=== PATIENT | female | born 1980 | race Caucasian/White ===

== ENCOUNTER 2016-09-26 07:50 | Emergency (ER) | payer SELFPAY ==
[~2016-09-26] VITALS: Ht 162.6 cm; Wt 54.4 kg
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
[2016-09-26] MEDS ORDERED: LORAZEPAM INJ 2 MG/ML VIAL ONE ×2 (08:08→08:18)
[2016-09-26 08:23] LABS: BASOPHILS % (AUTO) 0.4 % (0.0-2.0); EOSINOPHILS # (AUTO) 0.1 /CMM (0.0-0.7); EOSINOPHILS % (AUTO) 0.8 % (0.0-6.0); HEMATOCRIT 36 % (33-45); LYMPHOCYTES # (AUTO) 1.8 /CMM (0.8-4.8); LYMPHOCYTES % (AUTO) 24.1 % (20.0-44.0); MEAN CORPUSCULAR HEMOGLOBIN 28 PG (26.0-33.0); MEAN CORPUSCULAR HGB CONC 34 g/dl (31.0-36.0); MEAN CORPUSCULAR VOLUME 83 fL (82-100); MONOCYTES # (AUTO) 0.4 /CMM (0.1-1.30); MONOCYTES % (AUTO) 5.2 % (2.0-12.0); NEUTROPHILS # (AUTO) 5.1 /CMM (1.8-8.9); NEUTROPHILS % (AUTO) 69.5 % (43.0-81.0); PLATELET COUNT (AUTO) 291 /CMM (150-450); RDW COEFFICIENT OF VARIATION 14.7 (11.5-15.0); RED BLOOD CELL COUNT(AUTO) 4.29 MIL/uL (4.0-5.2); WHITE BLOOD COUNT (AUTO) 7.3 K/uL (4.3-11.0)
[2016-09-26] MEDS ORDERED: LORAZEPAM INJ 2 MG/ML VIAL IM ONE (08:30)
[2016-09-26] MEDS ORDERED: IV NS 0.9% 1,000 ML BAG IV ONE (08:30)
[2016-09-26 08:34] LABS: ALCOHOL, BLOOD < 3 mg/dL (0-0); CALCIUM, SERUM 8.5 mg/dL (8.5-10.1); CARBON DIOXIDE 26 mmol/L (21-32); CHLORIDE 105 mmol/L (98-107); CREATININE 0.8 mg/dL (0.6-1.3); GLUCOSE 104 mg/dL (74-106); POTASSIUM 3.3 mmol/L (3.5-5.1); SODIUM SERUM 142 mmol/L (136-145); UREA NITROGEN, BLOOD 27 mg/dL (7-18)
--- NOTE | 2016-09-26 08:35 | NUR ---
NEW IV STARTED LAC, 20 G. BLOOD DRAWN AND SENT TO LAB.
--- NOTE | 2016-09-26 08:45 | NUR ---
URINE OBTAINED VIA STRAIGHT CATH AND SENT TO LAB PER DR. CLAUDIO'S ORDERS.
--- NOTE | 2016-09-26 12:54 | NUR ---
CALLED [employer] MACHINE OPERATOR TRAIN INSPECTOR ETA OF 1HR WAS GIVEN.
--- NOTE | 2016-09-26 14:00 | NUR ---
PATIENT SLEEPING AT THIS TIME, NO COMPLICATIONS NOTED. WILL CONTINUE TO MONITOR.
--- NOTE | 2016-09-26 18:00 | NUR ---
PATIENT COMFORTABLE IN BED, QUIET. NO COMPLICATIONS NOTED, VSS. WILL CONTINUE TO MONITOR.
--- NOTE | 2016-09-26 19:40 | NUR ---
IV removed. Catheter intact and site benign. Pressure and 4x4 applied to site. No bleeding noted.Patient discharged to home in stable condition. Written and verbal after care instructions given. Patient verbalizes understanding of instruction. Patient is ambulatory with steady gait. Patient said her friend is going to pick her up. No further complaints.
[2016-09-26 19:42] VITALS: BP 110/79
== END 2016-09-26 19:42 | disposition home or self-care (01) ==
LOC: ER 07:53
DX: T44.901A Poisoning by unspecified drugs primarily affecting the autonomic nervous system, accidental (unintentional), initial encounter (principal); F15.10 Other stimulant abuse, uncomplicated; Y93.89 Activity, other specified
CPT/HCPCS: 36415; 80048; 80305; 84703; 85025; 93005; 96361; 96374; 99285; A4606; G0480; J2060; J7030 ×2; Z7610

== ENCOUNTER 2017-12-09 14:50 | Emergency (ER) | payer OTHER ==
[~2017-12-09] VITALS: Ht 162.6 cm; Wt 55.3 kg
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
--- NOTE | 2017-12-09 15:00 | NUR ---
PATIENT LISTENING TO INSTRUCTION. RESTRAINTS REMOVED
[2017-12-09] MEDS ORDERED: LORAZEPAM INJ 2 MG/ML VIAL IV ONE (15:30)
[2017-12-09] MEDS ORDERED: LORAZEPAM INJ 2 MG/ML VIAL ONE (15:31)
[2017-12-09 15:40] LABS: BASOPHILS # (AUTO) 0.1 /CMM (0.0-0.2); BASOPHILS % (AUTO) 2.4 % (0.0-2.0); EOSINOPHILS % (AUTO) 0.6 % (0.0-6.0); HEMATOCRIT 39 % (33-45); HEMOGLOBIN 12.9 g/dL (11.5-14.8); LYMPHOCYTES # (AUTO) 2.1 /CMM (0.8-4.8); LYMPHOCYTES % (AUTO) 33.6 % (20.0-44.0); MEAN CORPUSCULAR HGB CONC 34 g/dl (31.0-36.0); MEAN CORPUSCULAR VOLUME 86 fL (82-100); MONOCYTES # (AUTO) 0.4 /CMM (0.1-1.30); MONOCYTES % (AUTO) 5.8 % (2.0-12.0); NEUTROPHILS # (AUTO) 3.6 /CMM (1.8-8.9); NEUTROPHILS % (AUTO) 57.6 % (43.0-81.0); PLATELET COUNT (AUTO) 338 /CMM (150-450); RED BLOOD CELL COUNT(AUTO) 4.48 MIL/uL (4.0-5.2); WHITE BLOOD COUNT (AUTO) 6.2 K/uL (4.3-11.0)
--- NOTE | 2017-12-09 15:45 | NUR ---
PATIENT IV REMOVED FROM PATIENT THRASHING. ATIVAN NON ADMIN AND MD WILL UPDATE ORDER. PRESSURE AND DRESSING APPLIED. NO BLEEDING NOTED. CATH TIP INTACT
[2017-12-09] MEDS ORDERED: OLANZAPINE 10 MG VIAL IM STA (15:48)
--- NOTE | 2017-12-09 15:50 | NUR ---
PATIENT AGREED TO URINE SAMPLE. OBTAINED AND SENT TO LAB
[2017-12-09 15:54] LABS: CALCIUM, SERUM 8.5 mg/dL (8.5-10.1); CREATININE 0.8 mg/dL (0.6-1.3); POTASSIUM 3.5 mmol/L (3.5-5.1)
[2017-12-09 16:05] LABS: ALBUMIN 4.1 g/dL (3.4-5.0); BILIRUBIN,DIRECT 0.1 mg/dL (0.0-0.2); BILIRUBIN,TOTAL 0.4 mg/dL (0.2-1.0); TOTAL PROTEIN, SERUM 7.9 g/dL (6.4-8.2)
[2017-12-09 16:16] LABS: APPEARANCE,URINE SL CLOUDY (CLEAR); BILIRUBIN,URINE NEGATIVE (NEGATIVE); BLOOD, URINE 3+ Ery/uL (NEGATIVE); COLOR,URINE YELLOW (YELLOW); KETONES,URINE TRACE (NEGATIVE); LEUKOCYTE ESTERASE ,URINE NEGATIVE (NEGATIVE); NITRITE, URINE POSITIVE (NEGATIVE); PH,URINE 5.5 (5.0-8.0); PROTEIN,URINE TRACE mg/dl (NEGATIVE); UGLUCOSE NEGATIVE (NEGATIVE); UROBILINOGEN,URINE 0.2 EU/dL (0.2)
[2017-12-09 16:17] LABS: SALICYLATE 1.2 mg/dL (2.8-20.0)
[2017-12-09] MEDS ORDERED: CEPHALEXIN MONOHYDRATE 500 MG CAPSULE PO STA (16:23)
[2017-12-09] MEDS ORDERED: OLANZAPINE 10 MG VIAL IM ONE (16:25)
[2017-12-09 16:28] LABS: BACTERIA,URINE Many /HPF (None Seen); SQUAMOUS EPITHELIAL CELL,UR Moderate /HPF (None Seen); WBC,URINE 0-2 /HPF (0-3)
[2017-12-09] MEDS ORDERED: CEPHALEXIN MONOHYDRATE 500 MG CAPSULE PO ONE (16:30)
--- NOTE | 2017-12-09 17:00 | NUR ---
PATIENT CALM AND COOPERATIVE. RESTING WELL. NO RESTRAINTS
--- NOTE | 2017-12-09 17:30 | NUR ---
PATIENT SLEEPING WELL. COOPERATIVE AT THIS TIME
--- NOTE | 2017-12-09 19:12 | NUR ---
CARE ENDORSED TO CIARA DAWN FOR RIGOBERTO
[2017-12-10 02:57] VITALS: BP 111/65
== END 2017-12-10 02:57 | disposition home or self-care (01) ==
LOC: ER 14:55
DX: F15.10 Other stimulant abuse, uncomplicated (principal); F10.10 Alcohol abuse, uncomplicated; R00.0 Tachycardia, unspecified; Y90.8 Blood alcohol level of 240 mg/100 ml or more; Z60.2 Problems related to living alone
CPT/HCPCS: 36415; 80048; 80076; 80305; 80329; 81001; 85025; 87086; 96372; 99284; A4606; A6402; G0480 ×2; J2060; J3490; Z7610; 81000-TC